=== PATIENT | female | born 1990 | race Caucasian/White ===

== ENCOUNTER 2021-03-10 18:00 | Outpatient (CLI) | payer MEDICAID, SELFPAY ==
[2021-03-10 18:17] VITALS: BMI 41.8
--- NOTE | 2021-03-10 18:17 | OB.TRI.NOTE ---
HPI - General HPI Narrative SEN DENNISON, is a 30 F who presents for outpatient cervical ripening. at 39 weeks. Maternal Data Information ANDRES Calculator Estimated Delivery Date Method Current WG Current Estimate 03/17/21 Manual 39w 0d PFSH PFSH Home Medications vit,[id number] [Prenatabs FA] 1 tab PO DAILY 07/29/15 [History Last Taken 03/10/21 08:00] sertraline [Zoloft] 50 mg PO DAILY 03/10/21 [History Last Taken 03/10/21 08:00] Allergy/AdvReac Type Severity Reaction Status Date / Time No Known Allergies Allergy Verified 03/10/21 18:19 Social History Smoking Status: Heavy Smoker (>10/day) History Elective abortions Hx Para 2 Spontaneous abortions Hx # Term Pregnancies Ectopic pregnancies Hx # Pregnancies Multiple births # of living children Physical Exam Narrative transcervical elizabeth placed over stilette into cervical os. 30ml of NS instilled. Patient tolerated well. NST FHR Rate Baby A Baseline: 145 Variability:: Minimal Accelerations:: 15 x 15 Decelerations:: None NST Reactive:: Yes Uterine Activity:: Irregular Assessment & Plan (1) Late care: (2) Obesity affecting : (3) Moderate cigarette smoker: (4) Marijuana use: (5) History of methamphetamine use: (6) LGA (large for gestational age) fetus: (7) Excessive weight gain affecting : PLAN: 1) Reactive NST 2) Outpatient transcervical elizabeth placed, D/C instructions reviewed 3) Return tomorrow at 7am for IOL. If active labor to return
[2021-03-10 18:40] VITALS: BP 123/75; PULSE 100; TEMP 36.6; O2SAT 96
[2021-03-10] MEDS: 0.9% Normal Saline Single 100 ML IV.SOLN. INTRA-UTER (18:59)
== END 2021-03-10 20:22 | disposition home or self-care (01) ==
LOC: WPOUT 18:07 → WP 18:12
PROVIDERS: Visit Provider Advanced Practice Midwife
DX: O99.210 Obesity complicating pregnancy, unspecified trimester (principal); E66.9 Obesity, unspecified; O99.333 Smoking (tobacco) complicating pregnancy, third trimester; F17.210 Nicotine dependence, cigarettes, uncomplicated; O99.323 Drug use complicating pregnancy, third trimester; F12.90 Cannabis use, unspecified, uncomplicated; Z3A.39 39 weeks gestation of pregnancy
CPT/HCPCS: 59200; 59025; 59050; 99218; G0378

== ENCOUNTER 2021-03-11 06:55 | Inpatient (IN) | payer MEDICAID, SELFPAY ==
[2021-03-11] VITALS (53 sets, daily range): BP systolic 105–151; BP diastolic 53–92; PULSE 70–110; RESP 16; TEMP 35.7–37.2; O2SAT 94–98; BMI 43.1
[2021-03-11] MEDS: Lactated Ringers 1,000 ML 50 ML IV (07:55)
[2021-03-11 08:14] LABS: Absolute Lymphocyte Count 2.42 X10^3/uL (0.83-4.51); Absolute Neutrophil Count 11.9 X10^3/uL (2.0-7.7); Basophil# 0.01 X10^3/uL; Basophil% 0.1 % (0-1); Eosinophil# 0.35 X10^3/uL; Eosinophils% 2.2 % (0-5); Hematocrit 37.4 % (37-47); Hemoglobin 12.3 g/dL (12.0-15.0); Lymphocyte # 2.42 X10^3/ul (0.83-4.51); Lymphocyte % 15.4 % (19-41); Mean Corp Hgb Conc 32.9 g/dL (32-36); Mean Corpuscular Hgb 32.4 pg (27.0-32.0); Mean Corpuscular Volume 98.4 fL (81-99); Mean Platelet Vol. 10.4 fl (6.2-12.0); Monocyte% 5.7 % (0-10); NRBC Flagged by Analyzer 0 % (0-5); Neutrophil % 75.9 % (47-70); Platelet Count 320 K/mm3 (150-450); RBC Distribution Width CV 13.2 % (11.6-14.6); RBC Distribution Width SD 47.4 fl (35.1-43.9); White Blood Count 15.7 K/mm3 (4.4-11.0)
[2021-03-11] MEDS: Oxytocin 30 units/NS 500 ml 30 UNITS/500 ML IV.SOLN IV (08:14)
[2021-03-11 08:28] LABS: Amphetamine Urine VISTA NEGATIVE (<1000 ng/mL); Barbiturate Urine VISTA NEGATIVE (< 200 ng/mL); Benzodiazepine Urine VISTA NEGATIVE (< 200 ng/mL); Cocaine Urine VISTA NEGATIVE (< 300 ng/mL); Ecstacy Urine VISTA NEGATIVE (< 500 ng/mL); Methadone Urine VISTA NEGATIVE (< 300 ng/mL); PCP Urine VISTA NEGATIVE (< 25 ng/mL); THC Urine VISTA NEGATIVE (< 50 ng/mL); Vista UDS pH Range 6
--- NOTE | 2021-03-11 08:45 | PCM.HP.OB ---
HPI - General General Date of Admission: 03/11/21 HPI Narrative SEN DENNISON, is a 30 F who presents for induction. Maternal Data Information ANDRES Calculator Estimated Delivery Date Method Current WG Current Estimate 03/17/21 Manual 39w 1d PFSH PFS Medical History (Updated 03/11/21 @ 08:[address] Fercho Blood MD) Depression macrosomia depression Home Medications vit,[id number] [Prenatabs FA] 1 tab PO DAILY 07/29/15 [History Last Taken 03/10/21 08:00] sertraline [Zoloft] 50 mg PO DAILY 03/10/21 [History Last Taken 03/10/21 08:00] Allergy/AdvReac Type Severity Reaction Status Date / Time No Known Allergies Allergy Verified 03/10/21 18:19 Social History Smoking Status: Current every day smoker History Elective abortions Hx Para 3 Spontaneous abortions Hx # Term Pregnancies Ectopic pregnancies Hx # Pregnancies Multiple births # of living children NST FHR Rate Baby A Baseline: 140 Variability:: Moderate Accelerations:: 15 x 15 Decelerations:: Variable Uterine Activity:: irritability Vital Signs Vital Signs Vital Signs: 03/11/21 07:36 03/11/21 07:38 03/11/21 07:47 Temperature 97.9 F Pulse Rate 99 93 Blood Pressure 115/73 115/73 BP Systolic 115 115 BP Diastolic 73 73 Weight Weight: 251 lb 5.231 oz Body Mass Index (BMI) 43.1 Labs Labs Labs: Blood Type A POSITIVE Antibody Screen NEGATIVE Hct 37.4 % (37-47) Hgb 12.3 g/dL (12.0-15.0) Rhogam given: No Assessment & Plan (1) LGA (large for gestational age) fetus: COMMENT: 39&1 PLAN: Admit to L&D LGA - patient counseled on R/B/A of options and she wishes to proceed with induction of labor. EFW is 4500g & patient with adequate pelvis. She is s/p outpatient elizabeth. AROM clear fluid & IUPC placed. GBS positive - pcn per protocol H/o drug use - social work consult PP Pain - epidural as desired Routine care
[2021-03-11 09:01] LABS: Bedside Glucose 88 mg/dL (70-110)
[2021-03-11] MEDS: Ondansetron 4 MG/2 ML Vial IV (11:02)
[2021-03-11] MEDS: 0.9% Saline Lock 10 ML Syringe IV (11:02)
[2021-03-11] MEDS: Lactated Ringers 500 ML 999 ML IV (11:05)
[2021-03-11] MEDS: fentaNYL-bupivacaine (epidural) 100 ML BAG EPIDURAL ×2 (12:04→16:26)
[2021-03-11] MEDS: Penicillin G 3,000,000 Units 50 ML 100 UNITS IV ×2 (12:17→16:23)
[2021-03-11 13:21] LABS: Bedside Glucose 83 mg/dL (70-110)
[2021-03-11] MEDS: Lactated Ringers 1,000 ML 200 ML IV (15:33)
[2021-03-11 17:25] LABS: Bedside Glucose 99 mg/dL (70-110)
[2021-03-11] MEDS: Oxytocin 30 units/NS 500 ml 30 UNITS/500 ML IV.SOLN 334 UNITS IV (18:10)
--- NOTE | 2021-03-11 18:29 | EX.PCM.OBRPT ---
Maternal Data Information ANDRES Calculator Estimated Delivery Date Method Current WG Current Estimate 03/17/21 Manual 39w 1d Vaginal Delivery Maternal Presentation Maternal Presentation: Medically Indicated Induction Type of Induction: Pitocin, Cruz Bulb and Amniotomy Operative Information Date of Procedure: 03/11/21 Pre-Operative Diagnosis: Suspected LGA infant Post-Operative Diagnosis: Same Surgery / Procedure Performed: Spontaneous Vaginal Delivery Type of Anesthesia: Epidural Estimated Blood Loss: 350ml Findings Description of Procedure: Patient prepped & draped when C/C/+2. She pushed well to deliver the head. head gently guided to allow delivery of anterior and posterior shoulders. No excess traction placed on head. Body delivered and 3VC clamped & cut in delayed fashion. Placenta delivered with gentle traction and good uterine tone obtained. Presentation: EVELINA Amniotic Membrane Rupture Type: Artificial Amniotic Fluid Description: Clear Placental Delivery Description: Expressed Placenta Disposition: [facility] Specimen(s) Removed: Placenta Cord Vessel Description: 3 Vessels Cord Entanglement: Around neck x 1, loose Nuchal Cord Compression: Without compression A Gender: Female (1 minute): 8 (5 minute): 9 Delayed Cord Clamping: Yes Post Vaginal Delivery Medications Given After Delivery: IV Pitocin Episiotomy Description: None Laceration: 2nd degree (perineal and 1st degree left vaginal - both repaired with 3-0 vicryl) Complication Complications: None
[2021-03-12] VITALS (10 sets, daily range): BP systolic 128–146; BP diastolic 74–94; PULSE 73–99; RESP 16–18; TEMP 36.2–36.7; O2SAT 97–98
--- NOTE | 2021-03-12 08:30 | PCM.PN.OB ---
Subjective Subjective Patient seen at bedside. Feeling sore. Ambulating and voiding without difficulty. Breast and bottle feeding. Desires discharge home today. Objective Data Objective Data Vital Signs: Vital Signs Temp Pulse Resp BP Pulse Ox 98.1 F 73 16 146/87 H 94 03/12/21 03:27 03/12/21 03:26 03/12/21 03:26 03/12/21 03:26 03/11/21 17:11 Oxygen Delivery Method Room Air Weight: 251 lb 5.231 oz Body Mass Index (BMI) 43.1 Intake & Output: Intake and Output for Last 24 Hours 03/10/21 03/11/21 03/12/21 23:59 23:59 23:59 Intake Total 4216.98 / 4216.98 Output Total 700 / 700 Balance 3516.98 / 3516.98 Lab / Micro Data Result Diagrams: 03/11/21 07:55 Labs: Laboratory Results - last 24 hr 03/11/21 07:55: Blood Type A POSITIVE, Antibody Screen NEGATIVE 03/11/21 08:54: POC Glucose 88 03/11/21 13:14: POC Glucose 83 03/11/21 17:12: POC Glucose 99 Micro: Microbiology 03/11/21 07:40 Nasal Secretion SARS-CoV-2 Antigen (Rapid) - Final ROS Eyes Eyes: Denies blurry vision, change in vision or spots in vision ENT HEENT: Denies dizziness or headache(s) Cardiovascular Cardiovascular: Denies abdominal pain, chest pain or dyspnea Respiratory/Chest Respiratory/Chest: Denies cough, dyspnea, shortness of breath at rest or shortness of breath with exertion Gastrointestinal Gastrointestinal: Denies abdominal pain, diarrhea or vomiting Genitourinary Genitourinary: Denies change in urinary stream, difficulty urinating or dysuria Musculoskeletal Musculoskeletal: Reports none Integumentary Integumentary: Denies rash Neurologic Neurologic: Denies dizziness, headache(s), memory loss or weakness Physical Exam Const alert and no apparent distress General Appearance: cooperative and comfortable Exam Limitations: no limitations HEENT normocephalic Eyes General Eye: normal appearance of both eyes Neck full ROM General: normal visual inspection Chest Chest: symmetrical chest wall rise Resp normal respiratory effort and normal air movement Effort and Inspection: symmetric chest movement Auscultation: clear to auscultation bilaterally Cardio regular rate and regular rhythm GI normal to inspection, nondistended, normoactive bowel sounds Back/Spine normal ROM Extremity full ROM and no calf tenderness General Extremity: normal exam except as noted Skin no rashes or lesions noted Neuro CN's II-XII intact bilaterally Psych mental status grossly normal Assessment & Plan (1) (spontaneous vaginal delivery): (2) Second degree perineal laceration during delivery: PLAN: PPD 1 Routine care Breast feeding support Discharge home later today with follow up in office
--- NOTE | 2021-03-12 08:32 | PCM.DC ---
Discharge Instructions Diet Discharge Diet: No restrictions Activity May resume sexual activity in: 6-8 weeks Weight Bearing Status: Weight bearing as tolerated Dressing / Incision Call your doctor if you observe: Fever of 101 or Higher, Inability to urinate, Using more than 1 pad per hour, Shortness of breath, Chest pain, Calf discomfort and Uncontrolled pain Follow Up Care Please Follow Up With: Becca Manning CNM When: 2 weeks virtual visit/ 6 weeks in office Test Results: Test results from this visit will be discussed in further detail at your follow-up appointment, if applicable. Discharge Plan Admission Admit Date/Time: 03/11/21 06:55 Primary Reason for Your Visit: labor and delivery Attending Provider: Fercho Blood Primary Care Provider: Care Physician,Matilda Primary Instructions Patient Instructions: After a Vaginal , : Caring for Yourself Discharge Orders/Prescriptions Prescriptions: No Action Prenatabs FA 1 TABLET tablet 1 tab PO DAILY RF: 0 sertraline [Zoloft] 50 mg Tablet 50 mg PO DAILY RF: 0 Referrals / Follow Up: Care Physician,No Primary [Primary Care Provider] - Disposition Disposition (needs filled in before D/C Order can be placed): Home, Self Care
[2021-03-12] MEDS: Sertraline 50 MG Tablet PO (10:48)
--- NOTE | 2021-03-12 12:40 | CASEMGMT ---
Social Work Assessment Labor and Delivery Unit Patient Address: [address] [place] [address] Phone number: [phone] Date of Referral: 03/11/2021 Time of Referral: 2145 Referred By: Dr. Blood Date of Intervention: 03/12/2021 Time of Intervention: 1230 Reason for Referral: Child safety issues; history of meth use; positive for amphetamines and THC History obtained from: Medical records and mother of baby (MOB) Iliana Taylor; father of baby (FOB) Gen Bolanos Elaine present for part of conversation. Household composition: MOB and FOB report to live together. Also in the home are MOB 3 older children. Home situation is reported as safe and adequate. Patient's parent/guardian status: MOB is a 30-year-old single female, involved with a 24-year-old single male/FOB for the last year and a half. FOB is not on the certificate at this point, as he reportedly would like a paternity test. MOB denies any concerns or questions about paternity however. MOB denies any safety concerns for domestic violence issues in this relationship. baby is the first child for the parents together, in the first for the FOB. MOB minor children include: Zayden (age 8), Joe (age 7), Hamilton (age 5), and baby girl Claudette Henry (born 03.11.2020). Medical History: JT is 4, para 3 now 4 after delivering Claudette. care started at 8 weeks on 08/05/2020. Regular visits thereafter. Anai delivered at 39 weeks gestation weighing 8 pounds 2 ounces. Apgars 8 and 9 at 1 and 5 minutes of life respectively. Educational Status: High school. No issues with reading, writing, or learning comprehension reported. 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 No reported financial issues. Infant Supplies: MOB reports to have necessary supplies including a car seat, pack and play with bassinet attachment. Reports to have clothing, diapers, wipes, bottles. Plans to do a combination of breast and bottlefeeding. Childcare/Caregiver(s): MOB will be the primary caregiver along with help from the FOB. Transportation: No reported transportation issues. Programs/Agencies Involved: JT reports to have Medicaid through job and family services. Reports to be active with WIC. Reports to have a counselor named Aria Hale in [place]. Denies any other agency involvement. Children Services/Legal Issues: JT reports history of probation but has been off since 2019, finishing with treatment in lieu of conviction. MOB has a history of children services involvement due to arguments with savings father, and then later on history with said agency due to maternal drug use issues. Denies any current children services involvement. Endorses at one point a safety plan was put into place with the children living with the MOB mother due to substance use issues. MOB reports she never lost custody however. Behavioral Health Issues: Mental Health History: JT reports a history of depression and has been taking Zoloft during this . Currently prescribed 125 mg a day. MOB endorses history of suicide attempt by overdosing and also cutting her arms. Reports this was during the phase of MOB and active drug use. Reports there is been no suicidality in over a year and a half. [place] depression screen completed during this assessment, a score of 4 which is below the threshold for depression. MOB is in counseling in addition to medication management. Reports to enjoy being outside, smoking cigarettes, and taking some time to self. Substance Use History: JT reports history of methamphetamine use and marijuana use at the beginning of this . JT reports she ceased use after that initial positive drug screen in July. MOB unable to give a sober date, reporting it was around the time of the drug screen and will reported the relapse just occurred in July. Prior social work assessment indicates that JT has a history of opioid abuse years ago via prescription pills. No reported history of any heroin or cocaine. MOB denies any alcohol use issues nor any alcohol during . MOB does smoke tobacco. Family History: Medical record indicates that both of the MOB parents have a history of substance use issues. JT reports that the FOB also has a history of substance use issues, and has been clean for 2 years. Drug Screens: Maternal drug screen positive for amphetamines and marijuana on 08/05/2020. Retesting occurred on 02/26/2021 which was negative, and then again on 03/11/2021 which was also negative. Infant's urine drug screen is negative. Meconium is pending. Family/Social Stressors: Working in a penitentiary during Covid pandemic. FOB is unaware MOB methamphetamine use during this , and MOB is worried about him being disappointed in the MOB should the FOB find out. No other stressors identified. Support Systems: MOB reports to have an open relationship with the FOB and that if MOB depression starts exacerbating MOB know she could talk to him. Additional support from the MOB side of the family and also the FOB side of the family. MOB reports her family is a sober support, and to have 3 friends whom she would consider sober supports. Depression/Shaken Baby/Safe Sleeping: MOB able to provide appropriate responses for shaken baby prevention and safe sleeping. Educated both MOB and FOB to mood and anxiety disorders, risk factors, and that both mom's and dad's are at risk. ASSESSMENT: Met with the MOB and FOB together, and then alone with the FOB. MOB calm and cooperative with social work visit, agreeable to speak to this sheet writer. MOB and FOB reported to have been needed supplies to care for the infant. FOB will be taking a few days off of work to help with transition home. The oldest son is currently with his grandmother and 2 younger children with a friend for the next few days as MOB transitions home. MOB reports intent to remain on antidepressant medications and in counseling in the timeframe. During private conversation to contrast with the MOB substance use issues. MOB reports she was able to get clean from any substances after relapse in July. Denies any concerns at this point regarding substance use. Educated MOB to the need for a referral to children services, due to intrauterine exposure to substances. MOB accepted this information without issue. Let MOB know that uncertain whether case will be screened in for investigation or not. No voiced concerns by nursing staff regarding parent-child interactions or bonding. Provided MOB with a [facility] resource list, and impact on mood and anxiety disorders. MOB declines a referral to help me grow. Safe Plan of Care for infant related to substance use: MOB reports intent to remain abstinent of methamphetamines. Reports intent to abstain from marijuana. Reports understanding that marijuana usage and breast-feeding is not recommended. Reports plan to remain in counseling. Reviewed with the MOB that should anything change it is important for MOB to not use any substances around the children, and to ensure that there is a sober person meeting the children's needs. PLAN: MOB and infant will discharge home today. Plan to make a referral to [facility] services. We will monitor for meconium drug screen results. -AMERICA Sheikh, BERTRAND *This note was generated with [employer] software. It may contain incorrect words, spelling, and punctuation that were not noted in review of the chart prior to signing*
--- NOTE | 2021-03-12 13:36 | CASEMGMT ---
Social Work Labor and Delivery Referral to Esperanza Gutierrez at [facility] ([facility] , [facility], based on MOB's endorsement of methamphetamine and marijuana use in July and a positive drugs screen fur such. Brief maternal and histories provided. Made Esperanza aware that mom and baby being discharged today. Will monitor for meconium drug screen results and report to [facility] if indicated. No other services requested or indicated. -IMER Sheikh, PERFORMANCE MANAGEMENT CONSULTANT
--- NOTE | 2021-03-12 15:18 | CASEMGMT ---
Social Work Labor and Delivery Unit This script writer notified that baby was discharged to the [facility] special care nursery due to increased respirations. This script writer is also the assigned home health care social worker to the special care nursery, for continuity of care of families who are admitted to the unit. Spoke with the mother of baby and updated to this dual role, and MOB expressed understanding. Educated that a social assessment will be needed for the special care nursery and that information from original assessment today can be used. MOB voiced agreement. This script writer called [facility]. Updated Tasha to change in baby's status. Per Tasha, the referral is being screened out for investigation, the agency would like to be notified of baby's discharge once determined if medical condition is related to substances, and/or when meconium results come back. Plan: MOB will discharge to hotel status when medically ready. Infant discharged to the special care nursery. Social work will follow from the special care nursery. -IMER Sheikh, NERVE SPECIALIST *This note was generated with [employer] dictation software. It may contain incorrect words, spelling, and punctuation that were not noted in review of the chart prior to signing*
[2021-03-13 03:44] VITALS: BP 125/79; PULSE 83; RESP 18; TEMP 36.3
[2021-03-13 09:29] VITALS: BP 126/87; PULSE 70; RESP 18; TEMP 36.7
[2021-03-13] MEDS: Sertraline 50 MG Tablet PO (12:29)
[2021-03-13 15:00] VITALS: BP 147/87; PULSE 99; RESP 20; TEMP 36.6
--- NOTE | 2021-03-13 16:31 | PN.OBGYN_ITS ---
Subjective Subjective Patient chose not to be discharged home yesterday due to baby being admitted to [facility]. Will remain hotel status once discharged today. Objective Data Objective Data Vital Signs: Vital Signs Temp Pulse Resp BP Pulse Ox 98.1 F 70 18 126/87 H 98 03/13/21 09:29 03/13/21 09:29 03/13/21 09:29 03/13/21 09:29 03/12/21 13:00 Oxygen Delivery Method Room Air Weight: 251 lb 5.231 oz Body Mass Index (BMI) 43.1 Intake & Output: Intake and Output for Last 24 Hours 03/11/21 03/12/21 03/13/21 23:59 23:59 23:59 Intake Total 4216.98 / 4216.98 Output Total 700 / 700 Balance 3516.98 / 3516.98 Lab / Micro Data Result Diagrams: 03/11/21 07:55 Micro: Microbiology 03/11/21 07:40 Nasal Secretion SARS-CoV-2 Antigen (Rapid) - Final ROS Eyes Eyes: Denies blurry vision, change in vision or spots in vision ENT HEENT: Denies dizziness or headache(s) Cardiovascular Cardiovascular: Denies abdominal pain, chest pain or dyspnea Respiratory/Chest Respiratory/Chest: Denies cough, dyspnea, shortness of breath at rest or shortness of breath with exertion Gastrointestinal Gastrointestinal: Denies abdominal pain, diarrhea or vomiting Genitourinary Genitourinary: Denies change in urinary stream, difficulty urinating or dysuria Musculoskeletal Musculoskeletal: Reports none Integumentary Integumentary: Denies rash Neurologic Neurologic: Denies dizziness, headache(s), memory loss or weakness Physical Exam Const alert and no apparent distress General Appearance: cooperative and comfortable Exam Limitations: no limitations HEENT normocephalic Eyes General Eye: normal appearance of both eyes Neck full ROM General: normal visual inspection Chest Chest: symmetrical chest wall rise Resp normal respiratory effort and normal air movement Effort and Inspection: symmetric chest movement Auscultation: clear to auscultation bilaterally Cardio regular rate and regular rhythm GI normal to inspection, nondistended, normoactive bowel sounds Back/Spine normal ROM Extremity full ROM and no calf tenderness General Extremity: normal exam except as noted Skin no rashes or lesions noted Neuro CN's II-XII intact bilaterally Psych mental status grossly normal Assessment & Plan (1) (spontaneous vaginal delivery): (2) Second degree perineal laceration during delivery: PLAN: PPD 2 Routine care Discharge home with follow up in office
--- NOTE | 2021-03-13 19:32 | NURSING ---
1830 Discharged to courtesy room
--- NOTE | 2021-04-05 11:53 | CASEMGMT ---
Social Work Labor and Delivery unit Meconium drug screen results at that and negative for any drugs of abuse. No further referrals indicated. -IMER Sheikh, PAGEANT DIRECTOR
== END 2021-03-13 18:30 | disposition home or self-care (01) | DRG 560 ==
PROVIDERS: Admitting Provider Obstetrics & Gynecology; Visit Provider Obstetrics & Gynecology
DX: O36.63X0 Maternal care for excessive fetal growth, third trimester, not applicable or unspecified (principal); O76 Abnormality in fetal heart rate and rhythm complicating labor and delivery; O99.824 Streptococcus B carrier state complicating childbirth; Z20.822 Contact with and (suspected) exposure to COVID-19; O69.81X0 Labor and delivery complicated by cord around neck, without compression, not applicable or unspecified; O70.1 Second degree perineal laceration during delivery; O99.334 Smoking (tobacco) complicating childbirth; F17.210 Nicotine dependence, cigarettes, uncomplicated; O99.210 Obesity complicating pregnancy, unspecified trimester; Z3A.39 39 weeks gestation of pregnancy; Z37.0 Single live birth
CPT/HCPCS: 59025; 59050; 80307; 82962; 85025; 86850; 86900; 86901; 87426; 99218; J7120; A4216; G0378; J2405